=== PATIENT | male | born 1980 | race Caucasian/White ===

== ENCOUNTER 2017-08-07 10:35 | Inpatient (IN) ==
[2017-08-07 11:02] VITALS: BMI 33.3
[2017-08-07] MEDS: LR 1,000 ML IV SCH (15:00)
[2017-08-07] MEDS ORDERED: FentaNYL 100 MCG/2 ML INJECTION IVP PRN (15:58)
[2017-08-07] MEDS ORDERED: HYDROCODONE/APAP 7.5 MG/325 MG TABLET PO PRN (17:14)
[2017-08-07] MEDS ORDERED: VANCOMYCIN - PHARMACY CONSULT MC ONE (17:14)
[2017-08-07] MEDS ORDERED: ONDANSETRON 4 MG/2 ML INJECTION IVP PRN (17:14)
[2017-08-07] MEDS ORDERED: HYDROMORPHONE 2 MG/ML INJECTION IVP PRN (17:14)
[2017-08-07] MEDS ORDERED: SENNA + DOCUSATE TABLET PO PRN (17:14)
--- NOTE | 2017-08-07 17:53 | Pharmacy Consult-Antibiotics ---
Pharmacy Consult-Vancomycin - Laboratory Information 37yo M with Rt foot fx. Labs not yet available. Prior hx of renal fx WNL's. Will give VANCOMYCIN 2gm IV q12hrs (now and in morning at 0600 prior to surgery) . Then determination will be made whether to continue therapy or not. Thank you.
[2017-08-07] MEDS ORDERED: KETOROLAC 30 MG/ML INJECTION IVP PRN (17:58)
[2017-08-08] MEDS: LR 1,000 ML IV SCH ×2 (02:50→09:14)
--- NOTE | 2017-08-08 06:48 | Anesthesia Preoperative Report ---
Anesthesia Preoperative Record - Date and Time Date: 08/08/17 Preoperative Diagnosis: Right Foot Fracture NPO Since Date: 08/07/17 NPO Since Time: 00:00 Allergies/Adverse Reactions: Allergies Allergy/AdvReac Type Severity Reaction Status Date / Time No Known Allergies Allergy Verified 08/07/17 10:56 - Vital Signs Vital Signs: Temperature 98.2 F 08/08/17 06:32 Pulse Rate 58 L 08/08/17 06:35 Respiratory Rate 16 08/08/17 06:32 Blood Pressure 142/81 H 08/08/17 06:32 Pulse Oximetry 96 08/08/17 06:32 Height and Weight: Height 1.85 m Weight 114.8 kg Body Mass Index 33.3 - Medications Inpatient Medications: Current Medications Hydrocodone Bitart/Acetaminophen ([place] 7.5/325) 1 - 2 tab PO Q6H PRN PRN Reason: Pain Last Admin: 08/07/17 20:13 Dose: 2 tab Hydromorphone HCl (Dilaudid) 0.5 - 1 mg IVP Q1H PRN PRN Reason: Pain Last Admin: 08/08/17 04:37 Dose: 0.5 mg Lactated Ringer's (Lactated Ringers) 1,000 mls @ 50 mls/hr IV .Q20H [facility] Last Infusion: 08/08/17 05:18 Dose: 0 mls/hr Vancomycin HCl 2,000 mg/ (Sodium Chloride) 500 mls @ 250 mls/hr IV Q12H [facility] Last Infusion: 08/08/17 06:25 Dose: 250 mls/hr Ketorolac Tromethamine (Toradol Inj) 30 mg IVP Q6H PRN PRN Reason: Pain Stop: 08/12/17 17:58 Last Admin: 08/07/17 18:02 Dose: 30 mg Magnesium Hydroxide (Mom) 30 ml PO DAILY PRN PRN Reason: Constipation Ondansetron HCl (Zofran) 4 mg IVP Q6H PRN PRN Reason: Nausea &/or vomiting Senna/Docusate Sodium (Senna Plus Tablet) 1 tab PO BID PRN PRN Reason: Constipation Home Medications: Home Medications Medication Instructions Recorded Confirmed Type Augmentin (amoxicillin 875 1 tab PO BID 07/28/17 08/07/17 History mg-potassium clavulanate 125 mg) tablet Allopurinol [Zyloprim] 1 tab PO DAILY 08/07/17 08/07/17 History Ibuprofen 3 - 4 tab PO Q6H PRN 08/07/17 08/07/17 History Oxycodone HCl/Acetaminophen 1 - 2 tab PO Q4H PRN 08/07/17 08/07/17 History [Oxycodon-Acetaminophen 7.5-325] Is Patient on Beta Nadja?: No - Medical History Respiratory: DENIES: Sleep Apnea - Surgical History Anesthesia Reactions: None Hx Family Anesthesia Reaction: No History of Motion Sickness: No - Social History Smoking Status: Never smoker Hx Chewing Tobacco Use: No Second Hand Exposure: No Substance Use Type: does not use Alcohol Intake: current - Pertinent Findings EKG: Sinus Bradycardia - Physical Exam Respiratory Exam: Present: lungs clear, bilateral breath sounds equal Cardiovascular Exam: Present: regular rate and rhythm - Airway Assessment Mallampati Score: I TMD: 3 Fingerbreadths Neck Extension: good Overall Assessment: may be difficult mask vent - ASA ASA Score: 2 - Plan Anesthesia: General Inhalation Gases - Discussion Discussion: Discussed risks/options/alternatives of anesthesia and questions answered. Patient consents. Nursing pain assessment noted. Present for Discussion: family member Attestation Statement: Prior to the delivery of any anesthetic medication, I examined the patient, developed the plan, obtained the patient's consent and discussed the risk and benefits of the procedure with the patient/guardian. - Additional Information Seen by Anesthesia: Yes
[2017-08-08] MEDS ORDERED: PROPOFOL 500 MG/50 ML VIAL ONE (06:57)
[2017-08-08] MEDS ORDERED: LR 1,000 ML IV SCH (07:00)
[2017-08-08] MEDS ORDERED: FentaNYL 250 MCG/5 ML INJECTION ONE (07:01)
--- NOTE | 2017-08-08 08:08 | Anesthesia Postoperative Note ---
- Date and Time Date: 08/08/17 Time: 08:05 - Status Patient Participated in Evaluation: Patient Participated in Person Vital Signs: Temperature 97.1 F 08/08/17 08:04 Pulse Rate 71 08/08/17 07:59 Respiratory Rate 13 08/08/17 07:59 Blood Pressure 115/63 08/08/17 07:59 Pulse Oximetry 97 08/08/17 07:59 Respiratory Function: Airway Patent, Regular Respirations Cardiovascular Function: Regular Pulse EKG: Sinus Rhythm Mental Status: Alert and Oriented Pain Intensity: 0 Hydration: IV Infusing Complications During Recover: None Apparent - Follow-Up Instructions Instructions: Per Surgeon
[2017-08-08] MEDS ORDERED: MORPHINE SULFATE 4mg INJECTION IVP PRN (08:11)
[2017-08-08] MEDS ORDERED: ONDANSETRON 4 MG/2 ML INJECTION IVP PRN (08:11)
[2017-08-08] MEDS: ASPIRIN 81 MG CHEWABLE TABLET PO SCH ×3 (08:39→20:17)
[2017-08-08] MEDS: ALLOPURINOL 300 MG TABLET PO SCH (08:39)
[2017-08-08] MEDS: OXYCODONE/APAP 7.5 MG/325 MG TABLET PO PRN ×3 (14:39→19:42)
--- NOTE | 2017-08-08 15:52 | Operative Note ---
DATE OF PROCEDURE 08/08/2017 PREOPERATIVE DIAGNOSIS Right foot crush injury with traumatic wound and metatarsal fracture. POSTOPERATIVE DIAGNOSIS Right foot crush injury with traumatic wound and metatarsal fracture. PROCEDURE Surgical sharp debridement with wound vac placement, right foot. SURGEON Rell Senior MD [employer] Adilene Chacon APRN COMPLICATIONS None. ANESTHESIA General with LMA. EBL AND FLUIDS Please see anesthetic records. DESCRIPTION OF PROCEDURE Mr. Leyva and his right foot were identified and marked in the preoperative holding area. He was brought back to the operating suite and placed supine on the operating table. He was placed under general anesthesia. The right lower extremity was prepped and draped in my normal sterile fashion. Time-out was performed. His wound was on the lateral-dorsal aspect of the foot proximal to the fourth toe. Opening measured 18 mm x 17 mm and was 2 cm deep. I began sharp debridement removing all necrotic tissue from the wound which was rather extensive. This was done sharply with a curette. There was no pulsatile bleeding noted. Depth of the wound was down to the intrinsic muscle of the foot. I did not appreciate any exposed tendons. The wound tracked medially and the tunnel was 2 cm in depth. After all necrotic tissue was sharply debrided, the wound was thoroughly irrigated with normal saline. I then placed Restore at the base of the wound and then placed a wound vac with black foam and set it to 125 mm of continuous suction. It had a good seal. I also did take a deep tissue sample which appeared to be some subcutaneous fat from the depths of the wound to send for culture before the wound vac was placed. The drapes were then removed. He was allowed to awaken from general anesthesia and was taken to the recovery room under the care of Anesthesia. He tolerated the procedure well. There were no complications. CARLOS
--- NOTE | 2017-08-08 17:01 | XRay Report ---
INDICATION: HBO workup PROCEDURE: CHEST 2-VIEWS UPRIGHT (PA & LAT) Encounter: Initial COMPARISON: None FINDINGS: The lungs are clear without evidence of focal abnormal airspace opacity. There is no pleural effusion or pneumothorax. The heart size, mediastinal contours and pulmonary vascularity are within normal limits. There is no significant skeletal abnormality. IMPRESSION: No acute cardiopulmonary disease. .
[2017-08-09] MEDS: OXYCODONE/APAP 7.5 MG/325 MG TABLET PO PRN ×3 (03:46→13:49)
[2017-08-09] MEDS: LR 1,000 ML IV SCH (03:59)
--- NOTE | 2017-08-09 07:07 | Pharmacy Consult-Antibiotics ---
Pharmacy Consult-Vancomycin - Laboratory Information WBC 8.4 T/MM3 (4.5-11.0) 08/09/17 04:13 BUN 14.0 MG/DL (9-20) 08/09/17 04:13 Creatinine 1.1 mg/dL (0.8-1.5) 08/09/17 04:13 - Consult Information We adjusted the vancomycin to 1.5gm ivpb q8h. Trough should be around 19 with this dose. I ordered vancomycin trough for 08/10/17. Thanks
--- NOTE | 2017-08-09 08:20 | Orthopedic Progress Note ---
Date: Date: 08/09/17 Time: 814 Subjective/Severity of Illness: Raad has done well overnight, he has been up ambulating to the bathroom, WBAT on his right heel. Pain has been well controlled. Wound vac in place with minimal drainage, tolerating well. Denies chest pain, shortness of breathe, nausea, no fever or chills. Sates he did not "feel well this morning" but unable to define any symptoms other than feeling "a little warm". Orthopedic Objective PO Vital signs: Temperature 97.9 F 08/09/17 07:50 Pulse Rate 66 08/09/17 07:50 Respiratory Rate 16 08/09/17 07:50 Blood Pressure 119/78 08/09/17 07:50 Pulse Oximetry 97 08/09/17 07:50 Height and Weight: Height 6 ft 1 in Weight 115.1 kg Body Mass Index 33.3 - Constitutional General Appearance: Present: alert, orientated x3, well developed, well nourished - Respiratory Exam Present: non-labored - Cardiovascular Exam Present: pedal pulses intact - Extremities Exam Extremities: Present: edema (minimal in right foot). Absent: calf tenderness - Surgical Site Incision: dressing intact (wound vac in place) Wound Drainage: minimal amount - Neurological Exam Present: no deficits - Wound Management Right Foot Packing Type: Woundvac Sponge Right Anterior Foot Wound Type: Open Wound Wound Staging: Stage III Drainage Amount: Small - Labs Result Diagrams: 08/09/17 04:13 08/09/17 04:13 Abnormal lab results 08/09/17 08/09/17 Range/Units 04:13 04:13 RBC 3.98 L (4.50-5.90) M/MM3 Hgb 12.3 L (13.5-17.5) GM/DL Hct 36.1 L (41-53) % [place] % (Auto) 9.4 H (0-9.0) % Sodium 146 H (134-144) MEQ/L Chloride 109 H (98-107) MEQ/L Calculated Osmolality 282 H (261-280) MOSM/KG H & H 08/09/17 Range/Units 04:13 Hgb 12.3 L (13.5-17.5) GM/DL Hct 36.1 L (41-53) % Orthopedic Assessment and Plan (1) Traumatic open wound of right lower leg Status: Acute - Anticoagulation Therapy Anticoagulation: ASA 81 mg PO BID x6 weeks Hospital Course Summary Disclaimer: The visit summary below is not to be considered part of the above Progress Note. Hospital Course: Cultures from office show gram negative rods in preliminary report, cultures from OR negative at this time. Will start Levaquin 500mg [id number], will continue Vancomycin until cultures completed. Current anti-coagulation protocol with ASA 81mg BID and SCDs for VTE prophylaxis. PT/OT services to improve independent function. Discharge Planning per Case Management.
[2017-08-09] MEDS ORDERED: LEVOFLOXACIN PB 500 MG/100 ML BAG IV SCH (09:15)
[2017-08-09] MEDS: ASPIRIN 81 MG CHEWABLE TABLET PO SCH (09:23)
[2017-08-09] MEDS: ALLOPURINOL 300 MG TABLET PO SCH (09:23)
[2017-08-09 12:33] VITALS: TEMP 98.1
[2017-08-09 15:48] VITALS: BP 131/84; PULSE 71; RESP 16; O2SAT 95
--- NOTE | 2017-08-09 16:22 | Discharge Summary ---
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 - Discharge Diagnosis (1) Traumatic open wound of right lower leg Status: Acute - Laboratory Result Diagrams: 08/09/17 04:13 08/09/17 04:13 Laboratory: Abnormal lab results 08/09/17 08/09/17 Range/Units 04:13 04:13 RBC 3.98 L (4.50-5.90) M/MM3 Hgb 12.3 L (13.5-17.5) GM/DL Hct 36.1 L (41-53) % [place] % (Auto) 9.4 H (0-9.0) % Sodium 146 H (134-144) MEQ/L Chloride 109 H (98-107) MEQ/L Calculated Osmolality 282 H (261-280) MOSM/KG H & H 08/09/17 Range/Units 04:13 Hgb 12.3 L (13.5-17.5) GM/DL Hct 36.1 L (41-53) % - Microbiology Microbiology 08/08/17 07:22 Foot, Right Gram Stain - Final 08/08/17 07:22 Foot, Right Surgical Culture - Preliminary Pseudomonas aeruginosa Orthopedic Discharge HPI - HPI Comments Patient was seen in ortho clinic 08/08/17 for follow up of work comp injury (10/20). Patient had crush injury between wall and machine of right foot. He was seen in clinic for traumatic wound and right distal oblique diaphyseal fracture of third metatarsal. When present for follow up, traumatic wound was partially debrided to patient's tolerance and had worsened from initial visit. Patient admitted to the hospital for debridement of wound and wound vac placement. Orthopedic Hospital Course Hospital course: 08/09/17 16:32 After appropriate preoperative clearance and signing of operative consent, the patient was given IV antibiotics, according to orthopedic protocol. The patient was taken to the operating room and underwent right foot wound debridement and wound vac placement. Was originally placed on Vancomycin, cultures from office positive for pseudomonas. Vancomycin discontinued. Dose of Levaquin 500mg given IV. Discharged home on Levaquin 750mg PO daily. Wound Clinic consulted for management of wound vac. Plan to follow in wound clinic tomorrow. Following surgery, appropriate anticoagulants were initiated and SCDs added for DVT prevention. The dressing was clean, dry, and intact. Pain control was obtained via multimodal approach. Bowel motivation addressed with scheduled and PRN medications. Early mobilization was initiated, WBAT on right heel. Discharge arrangements made by a collaborative effort between the patient and Case Management. Follow-up in wound clinic. Discharge instructions given by orthopedic providers and nursing staff at discharge. Patient discharged home, stable, and condition was good. Care extended to > 2 midnight stays?: No Discharge Plan - Med Rec/Dispo Referrals/Follow Up: Wound Care,[facility] [Non-Staff] - 1 Day [place] Instructions: [facility] Ortho Postop Instructions Prescriptions: New Levofloxacin [Levaquin] 750 mg PO DAILY #7 tab Senna + Docusate [Senna Plus Tablet] 1 tab PO BID PRN tab PRN Reason: Constipation Milk of Magnesia [Mom] 30 ml PO DAILY PRN udc PRN Reason: Constipation Continue Ibuprofen 3 - 4 tab PO Q6H PRN PRN Reason: Pain Allopurinol [Zyloprim] 1 tab PO DAILY Oxycodone HCl/Acetaminophen [Oxycodon-Acetaminophen 7.5-325] 1 - 2 tab PO Q4H PRN #60 tab PRN Reason: pain Discontinued Augmentin (amoxicillin 875 mg-potassium clavulanate 125 mg) tablet 1 tab PO BID - Disposition Discharged Home, Self-Care - Dismissal Complete Discharge Instructions are:: Complete
--- NOTE | 2017-08-10 08:15 | Wound Care Progress Note ---
Wound Center Progress Note: Late entry; 08/09/17 wound clinic applied the wound vac after pt treated in HBO in the clinic setting. skin was prepped with [employer] wipes, vac drape then black foam applied and covered with occlusive dressing, Sensor track applied and good suction contained. Suction is at 125mm at this time. Pt was given instruction on management of home wound vac and the 1-800 number if needed for assistance.
== END 2017-08-09 16:55 | disposition home or self-care (01) | DRG 502 ==
LOC: SRG → SUR 10:35 → SRG 08-08 13:56 → UNDODISIN 08-09 16:55 → EDSTATUS 08-10 09:26
PROVIDERS: ADMIT Orthopaedic Surgery; ATTEND Orthopaedic Surgery